=== PATIENT | male | born 1950 | race Hispanic/Latino ===

== ENCOUNTER 2017-05-04 11:12 | Day surgery (SDC) | payer MEDICARE, MEDICAID ==
[2017-05-03 08:33] VITALS: BMI 23.8
[2017-05-04] MEDS ORDERED: HEPARIN SODIUM/NS 2,000 ML IV ONE (11:25)
[2017-05-04] MEDS ORDERED: Lidocaine 2% Inj (20ml) ONE (11:25)
[2017-05-04] MEDS ORDERED: Nitroglycerin 50mg in D5W 50 MG/250 ML BOTTLE IV ONE (11:25)
[2017-05-04] MEDS ORDERED: Iodixanol 320 MG/ML 100 ML BOTTLE IV ONE (11:25)
[2017-05-04] MEDS ORDERED: Iodixanol 320 mg/ml 150 ml Bottle IV ONE (11:25)
[2017-05-04 11:43] LABS: BASO # 0.02 K/mm3 (0.0-2.0); BASO % 0.3 % (0.0-3.0); EOS # 0.2 (0.0-0.7); EOS % 2.9 % (1.5-5.0); GRAN # 5.5 (1.4-6.5); GRAN % 75.1 % (50.0-68.0); HEMOGLOBIN 14.8 g/dL (14.0-18.0); LYMPH # 1.2 (1.2-3.4); MEAN CELL VOLUME 87.9 fl (80.0-105.0); MEAN CORPUSCULAR HEMOGLOBIN 28.5 pg (25.0-35.0); MEAN CORPUSCULAR HGB CONC 32.4 g/dl (31.0-37.0); MEAN PLATELET VOLUME 10.8 fl (7.0-11.0); MONO # 0.4 (0.1-0.6); MONO % 5.7 % (1.0-6.0); RBC 5.2 10^6/uL (3.5-6.1); RED CELL DISTRIBUTION WIDTH 13.7 % (11.5-14.5); WHITE BLOOD COUNT 7.3 10^3/ul (4.5-11.0)
[2017-05-04 11:55] LABS: BLOOD UREA NITROGEN 24 mg/dL (7-21); CALCIUM 9.8 mg/dL (8.4-10.5); GFR AFRICAN-AMERICAN > 60; GFR NON-AFRICAN AMERICAN > 60
[2017-05-04 11:56] LABS: INR 1.05 (0.93-1.08); PARTIAL THROMBOPLASTIN TIME 30.8 Seconds (25.1-36.5); PROTHROMBIN TIME 12.1 SECONDS (9.4-12.5)
[2017-05-04] MEDS ORDERED: Iodixanol 320 MG/ML 200 ML BOTTLE IV ONE (12:37)
[2017-05-04] MEDS ORDERED: Midazolam 2 MG/2 ML VIAL ONE (13:48)
[2017-05-04] MEDS ORDERED: Oxycodone/Acetaminophen 5/325 mg Tab PO PRN (15:36)
[2017-05-04] MEDS ORDERED: Sodium Chloride 0.45% 1,000 ML IV SCH (15:45)
[2017-05-04 16:06] VITALS: RESP 18; TEMP 97.6
[2017-05-04 17:30] VITALS: O2SAT 98
[2017-05-04 18:13] VITALS: BP 159/72; PULSE 70
--- NOTE | 2017-05-04 18:46 | VASCULAR ---
PROCEDURE: Abdominal aortogram and bilateral lower extremity runoff with right selective views. HISTORY: Severe peripheral vascular disease. Previous left BKA. Ischemic ulceration right 3rd toe. Diabetes. Previous smoker. PHYSICIAN(S): Kailash Mora MD. TECHNIQUE: The relative risks and indications of the procedure were explained to the patient and consent obtained. The patient was hydrated prior to the procedure and the appropriate labs drawn. The patient was placed supine on the arteriogram table and the left groin prepped and draped in the usual sterile fashion. Conscious sedation and monitoring were provided throughout the procedure by a nurse. Via a left common femoral artery approach, a 5 [place] sheath was placed in the left groin. Through the sheath and over a guidewire, a 5 [place] flush catheter was placed in the abdominal aorta at the level of the renal arteries and a PA DSA abdominal aortogram performed. The catheter was pulled down to the aortic bifurcation and bilateral oblique DSA pelvic arteriograms performed. Overlapping bilateral lower extremity DSA arteriograms were obtained from the inguinal ligaments to the adductor canal.. A 6 [place] sheath was placed in the mid to distal right SFA. A 5 [place] catheter was placed in the right popliteal artery. Selective images of the right lower extremity runoff was performed. A lateral view of the foot was obtained. Multiple attempts at crossing the occluded right posterior tibial and anterior tibial arteries were unsuccessful despite multiple catheters and various guidewires. The sheath was removed and hemostasis obtained. The patient tolerated the procedure well. FINDINGS: There are single renal arteries bilaterally which are widely patent and normal in appearance. The nephrograms are symmetric in appearance. The infrarenal abdominal aorta is widely patent without a radiographically significant stenosis. The aortic bifurcation is widely patent. The common and external iliac arteries are normal in appearance without a significant stenosis. The internal iliac arteries are patent bilaterally. Right lower extremity: The right common femoral artery is patent. The right profunda femoral artery is patent. The right superficial femoral artery is patent and continuous without a radiographically significant stenosis. There is a critical stenosis in the right popliteal artery at the knee joint. There is severe right trifurcation and tibial occlusive disease. All 3 tibial arteries are occluded in the proximal and mid portions. There is reconstitution of the distal right posterior tibial artery and the terminal right anterior tibial artery. Left lower extremity: The patient is status post left BKA. The visualized arteries are patent to the adductor canal IMPRESSION: 1. 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 The right anterior tibial and posterior tibial arteries could not be crossed in an antegrade direction. There is reconstitution of the distal right posterior tibial artery in the terminal right anterior tibial artery. 2. Critical focal right popliteal artery stenosis at the knee. 3. Status post left BKA.
== END 2017-05-04 18:30 | disposition home or self-care (01) ==
LOC: SDSVAS 11:12
PROVIDERS: ATTEND Radiology Vascular & Interventional Radiology
DX: E11.51 Type 2 diabetes mellitus with diabetic peripheral angiopathy without gangrene (principal); I70.235 Atherosclerosis of native arteries of right leg with ulceration of other part of foot; L97.519 Non-pressure chronic ulcer of other part of right foot with unspecified severity; Z87.891 Personal history of nicotine dependence; Z79.4 Long term (current) use of insulin; Z89.512 Acquired absence of left leg below knee
CPT/HCPCS: 36247; 36415; 75625; 75716; 75774; 80048; 85025; 85610; 85730; 99152; 99153; C1725 ×2; C1760 ×2; C1769 ×5; C1887 ×4; C1894; J1644; J2250; J2405; J3010; J7030; Q9967